=== PATIENT | female | born 2000 | race Caucasian/White ===

== ENCOUNTER 2023-04-05 10:09 | Emergency (ER) | payer OTHER, SELFPAY ==
[2023-04-05 10:10] VITALS: BP 125/91
--- NOTE | 2023-04-05 10:45 | ED.GENMED ---
History of Present Illness
General
Chief Complaint: Abdominal Symptoms
Time Seen by Provider: 04/05/23 10:45
Travel History
Have you had any contact with someone who has COVID-19?: No
Do you have any symptoms of coronavirus? Fever > 100 degrees, chills, cough, shortness of breath, sore throat, loss of taste or smell, muscle aches, or headache?: No
History of Present Illness
History of Present Illness:
HPI: Patient presents with nausea vomiting and diarrhea that started last night. She had a similar episode this past summer associated with drinking alcohol on her 22st birthday. At that time she was at [place]. She has been having episodes of
mild for many years. She does intermittently use marijuana but mother states she does not use it on a daily basis. She does not drink alcohol regularly. She only has minimal discomfort in the abdomen currently. Her pain is not focal.
EXAM:
GENERAL: Well appearing in no distress however before I did get a chance to interview her, she was in the bathroom vomiting on 2 occasions
HEENT: Moist oral mucosa
CARDIOVASCULAR: No murmurs, normal heart rate and rhythm, No chest wall tenderness
PULMONARY: No respiratory distress, breath sounds are clear and equal
ABDOMEN: Soft with no peritoneal signs, no tenderness
NEUROLOGIC: Excellent strength all extremities, no coordination deficits
PSYCHIATRIC: Appropriate mental status, normal insight and judgement
EXTREMITIES: Nontender, no edema, moves all extremities equally
SKIN: No rash, no lesions
ED COURSE:
11:20 AM: I initially evaluated patient
NUMBER AND COMPLEXITY OF PROBLEMS ADDRESSED AT THE ENCOUNTER
� Chronic conditions affecting care: Recurring episodes of vomiting
� Acute Exacerbation and/or Progression of Chronic Illness:
� Differential Diagnosis includes: Cannabinoid hyperemesis syndrome, gastroenteritis/foodborne illness, doubt gallbladder etiology
AMOUNT AND/OR COMPLEXITY OF DATA TO BE REVIEWED AND ANALYZED
� I performed an independent evaluation of and my interpretation is:
EKG:
CT:
X-rays:
Laboratory Studies: Mild leukocytosis noted at 12.6, other basic labs unremarkable
Other:
� Review of other/old records: I reviewed records. The patient had a CAT scan of the abdomen and pelvis in February 2021 which suggested the possibility of a ruptured ovarian cyst
� Clinical information was obtained by an independent historian: I spoke to mother at bedside
� Prescriptions/Medications Considered but not given:
� Further testing considered but not performed: CT imaging however the patient appears very comfortable and reassess especially after 1 mg of Ativan was given. She did not have any significant abdominal tenderness
RISK OF COMPLICATIONS AND/OR MORBIDITY OR MORTALITY OF PATIENT MANAGEMENT
� Social determinants of health affecting care: Lives at home
� Discussion with other providers:
� Escalation of care including admission/observation vs risk of discharge considered: The patient has only mild tenderness on physical examination with no focal findings. Her symptoms are associated with vomiting as well as
diarrhea. She is very comfortable in appearance at 11:25 AM. I reassessed patient at 2 PM. We discussed the possibility of cannabinoid hyperemesis syndrome. I recommend that she stop marijuana. I also suggest that she try cognitive behavioral
therapy. She will follow-up with GI as an outpatient as well�I did contact their office. She appears very comfortable on rias.
Past History
Past History
ED Past Medical History: Other (Anxiety)
ED Past Surgical History: None
Patient has exhibited threatening behavior?: No
Social History
Tobacco: Non-smoker
Alcohol: None
Drug: Marijuana (medical marijuana)
Phy Exam
Physical Exam
Physical Exam:
See HPI
Course
Orders/Labs/Results
Orders:
Orders
04/05/23 10:56
0.9% Sodium Chloride 1000 ml [Nss] 1,000 ml IV BOLUS
Famotidine [Pepcid] 20 mg IV NOW STA
Ondansetron Injectable [Zofran] 4 mg IV NOW STA
04/05/23 10:57
Test Result ONCE
04/05/23 11:12
Complete Blood Count/With Diff Urgent
Comprehensive Metabolic Panel Urgent
HCG, Serum Qualitative Screen Urgent
Lipase Urgent
04/05/23 12:37
Lorazepam [Ativan] 1 mg IV NOW STA
Abnormal Lab Results
04/05/23
11:12
WBC 12.6 H 10^3/uL
(4.8-10.8)
MCH 32.5 H pg
(27.0-31.0)
Absolute Neuts (auto) 11.6 H 10^3/uL
(1.4-6.5)
Absolute Lymphs (auto) 0.6 L 10^3/uL
(1.2-3.4)
Neutrophils % 92.1 H %
(42.2-75.2)
Lymphocytes % 4.6 L %
(20.5-51.1)
Carbon Dioxide 21 L mmol/L
(22-30)
Creatinine 0.5 L mg/dL
(0.6-1.0)
Glucose 171 H mg/dl
(70-99)
Calcium 10.5 H mg/dl
(8.4-10.2)
04/05/23 11:12
04/05/23 11:12
Vital Signs
Initial and Last Documented VS:
Initial Vital Signs
Temp Pulse Resp BP Pulse Ox
98.8 F 68 18 125/91 97
04/05/23 10:10 04/05/23 10:10 04/05/23 10:10 04/05/23 10:10 04/05/23 10:10
Last Documented Vital Signs
Temp Pulse Resp BP Pulse Ox
98.8 F 68 18 125/91 97
04/05/23 10:10 04/05/23 10:10 04/05/23 10:10 04/05/23 10:10 04/05/23 10:10
*Critical Care Note
Total Time (30-74mins, 75-104mins- exclusive of procedures): Not Applicable
ED Attending Note
-
Portions of this chart may have been created with voice recognition software.� Occasional wrong word or��sound alike� substitutions may have occurred due to the inherent limitations of voice recognition software.
Discharge Plan
Departure
Patient Disposition: Home (Routine Discharge)
Date of Disposition: 04/05/23
Time of Disposition: 14:02
Patient with high blood pressure during this ER visit?: Yes
Discharge Problem:
Vomiting
Instructions: Nausea and Vomiting, Adult (DC)
Prescriptions:
New
ondansetron HCl 4 mg tablet
4 mg PO Q8HPRN PRN (Reason: nausea and vomiting) Qty: 14 0RF
Referrals:
Trey Sung MD [Active] - Follow up in 2-3 days
Bhargav King MD [Family Provider] -
Activity Restrictions/Additional Instructions:
Your symptoms could be related to cannabinoid hyperemesis syndrome. I do recommend that you stop the marijuana. Your white blood cell count is slightly high. Other basic blood work is unremarkable. Unisom comes in either doxylamine or
diphenhydramine form�I recommend doxylamine to be taken nightly to help sleep. Generic doxylamine would be fine. Consider following up with a psychologist for cognitive behavioral therapy. I have contacted GI and they should contact you to
arrange close follow-up.
Interventions
Interventions:
*Risk Screen - Suicide Last Done: 04/05/23 10:10
*General Assessment Last Done: 04/05/23 10:10
*Neglect/Abuse Screening Last Done: 04/05/23 10:10
ED- Fall Risk Assessment Last Done: 04/05/23 11:19
GL-Udwwfh-Obsbpdtlsk Assessment Last Done: 04/05/23 11:19
[2023-04-05] MEDS: NSS 1000 IV (11:13)
[2023-04-05] MEDS: ZOFRAN 4 MG IV (11:13)
[2023-04-05] MEDS: PEPCID 20 MG IV (11:13)
[2023-04-05 11:19] VITALS: BMI 23.1
[2023-04-05 11:20] LABS: % Basophils 0.1 % (0-2); % Immature Granulocytes 0.3 % (0-0.5); % Lymphocytes 4.6 % (20.5-51.1); % Monocytes 2.9 % (1.7-9.3); % Neutrophils 92.1 % (42.2-75.2); Absolute Lymphocytes 0.6 10^3/uL (1.2-3.4); Absolute Monocytes 0.4 10^3/uL (0.1-0.6); Absolute Neutrophils 11.6 10^3/uL (1.4-6.5); Hematocrit 39.3 % (37.0-47.0); Mean Corp Hgb Conc. 35.6 g/dL (33.0-37.0); Mean Corpuscular Hgb 32.5 pg (27.0-31.0); Mean Corpuscular Volume 91.2 fL (81.0-99.0); Nucleated Red Blood Cells % 0 %; Platelet Count 311 10^3/uL (130-400); Red Blood Cell Count 4.31 10^6/uL (4.20-5.40); Red Cell Dist. Width 11.8 % (11.5-14.5); White Blood Cell Count 12.6 10^3/uL (4.8-10.8)
[2023-04-05 11:32] LABS: HCG, Serum Qualitative Screen Negative
[2023-04-05 11:37] LABS: ALT (SGPT) 20 U/L (0-35); AST (SGOT) 28 U/L (14-36); Alkaline Phosphatase 86 U/L (38-126); Blood Urea Nitrogen 15 mg/dl (7-17); Calcium 10.5 mg/dl (8.4-10.2); Carbon Dioxide 21 mmol/L (22-30); Chloride 102 mmol/L (98-107); Estimated Creatinine Clearance 123 ml/min; Glucose 171 mg/dl (70-99); Potassium 3.9 mmol/L (3.5-5.1); Sodium 139 mmol/L (135-145); eGFR > 60.00
[2023-04-05] MEDS: ATIVAN 1 MG IV (12:41)
[2023-04-05 13:22] LABS: Lipase 44 U/L (23-300)
[2023-04-05 14:31] VITALS: BP 120/90
== END 2023-04-05 14:33 | disposition home or self-care (01) ==
LOC: EMR 10:09
PROVIDERS: EMERGENCY PHYSICIAN Emergency Medicine; FAMILY PHYSICIAN Family Medicine
DX: R11.2 Nausea with vomiting, unspecified (principal); R19.7 Diarrhea, unspecified
CPT/HCPCS: 99284; 96374; 96375 ×2; 96361; 80053; 83690; 84703; 85025

== ENCOUNTER → 2023-05-17 06:26 | Day surgery (SDC) | payer OTHER, SELFPAY | LOC: GI 06:26 | PROVIDERS: ATTENDING PHYSICIAN Internal Medicine Gastroenterology | DX: K29.70 Gastritis, unspecified, without bleeding (principal); R11.2 Nausea with vomiting, unspecified | CPT/HCPCS: 43239; 88305; 88342 ==